=== PATIENT | female | born 1980 | race Caucasian/White ===

== ENCOUNTER 2017-03-01 22:48 | Inpatient (IN) | payer OTHER ==
[~2017-03-01 22:48] MED LIST: EPINEPHrine 1 MG/ML AMP ONE; PROPOFOL 200 MG/20 ML VIAL ONE
[2017-03-01 23:27] VITALS: BMI 33.7
[2017-03-01] MEDS ORDERED: Ondansetron HCl/PF 4 MG/2 ML Vial IVP PRN (23:41)
[2017-03-01] MEDS ORDERED: Promethazine HCl 25 MG/ML VIAL IM PRN (23:41)
[2017-03-01] MEDS ORDERED: CEFAZOLIN/Water 2 GM/20 ML SYRINGE SLOW IVP SCH (23:59)
[2017-03-01] MEDS ORDERED: Lactated Ringer's 1,000 ML IV SCH (23:59)
[2017-03-01] MEDS ORDERED: Bicitra 30 ML UDCUP PO SCH (23:59)
[2017-03-02] MEDS ORDERED: Morphine PF 1 MG/ML SYR ONE (00:03)
[2017-03-02] MEDS ORDERED: ePHEDrine/0.9% NaCl/PF SYRINGE 50 mg/10 ml ONE ×2 (00:03→15:54)
[2017-03-02] MEDS ORDERED: Oxytocin 10 UNITS/ML VIAL ONE (00:03)
[2017-03-02] MEDS ORDERED: Ketorolac Tromethamine 30 MG/ML VIAL ONE ×2 (00:03→15:54)
[2017-03-02] MEDS ORDERED: Ondansetron HCl/PF 4 MG/2 ML Vial ONE ×2 (00:03→15:54)
[2017-03-02 00:05] LABS: Hemoglobin 13.7 g/dL (12.0-16.0); Mean Corpuscular HGB CONC 33.7 g/dL (32.0-36.0); Mean Corpuscular Hemoglobin 32.3 pg (27.0-31.0); Mean Platelet Volume 9.4 fL (7.4-10.4); Platelet Count 207 thou/uL (130-400); Red Blood Cell (RBC) Count 4.24 mill/uL (4.20-5.40)
[2017-03-02 00:38] LABS: Syphilis Antibody Nonreactive (Nonreactive); Syphilis Antibody Index 0.06 S/CO (<1.00 Non-Reactive)
[2017-03-02 00:39] LABS: HBSAg Index 0.19 S/CO (0-0.99); Hep B Surf Ag Non-Reactive S/CO (NonReactive)
[2017-03-02] MEDS ORDERED: Lidocaine 1% PF 5 ML VIAL ONE (00:42)
[2017-03-02] MEDS ORDERED: Succinylcholine Chloride 20 MG/ML 10 ml SYRINGE FS ONE ×2 (00:44→15:54)
[2017-03-02] MEDS ORDERED: Fentanyl 250 MCG/5 ML VIAL ONE (00:45)
[2017-03-02] MEDS ORDERED: Naloxone HCl 0.4 mg/ml Vial IV PRN (01:13)
[2017-03-02] MEDS ORDERED: Promethazine HCl 25 MG SUPP PR PRN (01:13)
[2017-03-02] MEDS ORDERED: Ketorolac Tromethamine 30 MG/ML VIAL IVP PRN (01:13)
[2017-03-02] MEDS ORDERED: HYDROmorphone 2 MG/ML VIAL SLOW IVP PRN (01:13)
[2017-03-02] MEDS ORDERED: Promethazine HCl 25 MG/ML VIAL IM PRN (01:13)
[2017-03-02] MEDS ORDERED: Morphine 10 MG/ML VIAL SLOW IVP PRN (01:13)
[2017-03-02] MEDS ORDERED: Meperidine HCl/PF 25 MG/ML VIAL SLOW IVP PRN (01:13)
[2017-03-02] MEDS ORDERED: Eucerin (Mineral Oil/Petrolatum,White) 30 gm Jar TOP PRN (01:13)
[2017-03-02] MEDS ORDERED: Naloxone HCl 0.4 mg/ml Vial IVP PRN ×2 (01:13)
[2017-03-02] MEDS ORDERED: Ondansetron HCl/PF 4 MG/2 ML Vial IVP PRN ×2 (01:13)
[2017-03-02] MEDS ORDERED: diphenhydrAMINE 50 MG/ML VIAL IVP PRN (01:13)
[2017-03-02] MEDS ORDERED: Ketorolac Tromethamine 30 MG/ML VIAL IVP SCH (01:15)
[2017-03-02] MEDS ORDERED: Communication Order-Pharmacy FS SCH (01:15)
--- NOTE | 2017-03-02 01:22 | PDOC.OPDEL ---
OB Operative/Delivery Note Delivery Dr/Surgeon: Loly Pre-Delivery Diagnosis: breech Procedure/Post Delivery Dx: primary low transverse CS Weeks gestation: 39 Anesthesia: other (spinal inadequate-proceeded to geta) - Findings A Sex: female Weight: 5 lb 11 oz - 1 min: 8 - 5 min: 9 - Additional Findings/Plan Placenta delivered: manual removal findings: low transverse hysterotomy without extension, normal tubes ( arcuate uterus), normal ovaries
[2017-03-02] MEDS ORDERED: Lanolin Ointment 7 GM TUBE TOP PRN (01:24)
[2017-03-02] MEDS ORDERED: diphenhydrAMINE 25 MG CAP PO PRN (01:24)
[2017-03-02] MEDS ORDERED: Bisacodyl 10 MG SUPP PR PRN (01:24)
[2017-03-02] MEDS ORDERED: Zolpidem Tartrate 5 MG TAB PO PRN (01:24)
[2017-03-02] MEDS ORDERED: traMADol HCl 50 MG TAB PO PRN ×3 (01:26→13:15)
--- NOTE | 2017-03-02 01:27 | OP ---
DATE OF SERVICE: 03/02/2017 I was present and scrubbed to assist the uncomplicated primary for breech presentation with Dr. Cassidy Salcido. Please see her note for full details.
[2017-03-02] MEDS ORDERED: Adacel (T-DAP) 0.5 ML VIAL IM ONE (02:00)
[2017-03-02] MEDS ORDERED: LR / Pitocin 40 units/1000 ml 1,000 ML ONE (04:14)
[2017-03-02] MEDS ORDERED: LR / Pitocin 40 units/1000 ml 1,000 ML IV SCH ×2 (04:45→05:15)
[2017-03-02 05:57] LABS: Hemoglobin 11.8 g/dL (12.0-16.0); Mean Corpuscular HGB CONC 33.4 g/dL (32.0-36.0); Mean Corpuscular Hemoglobin 32.3 pg (27.0-31.0); Mean Corpuscular Volume 96.8 fl (81.0-99.0); Mean Platelet Volume 9.4 fL (7.4-10.4); Platelet Count 189 thou/uL (130-400); Red Blood Cell (RBC) Count 3.65 mill/uL (4.20-5.40); White Blood Cell (WBC) Count 15.4 thou/uL (4.8-10.8)
[2017-03-02] MEDS: Ferrous Sulfate 325 MG TAB PO SCH ×2 (08:00→18:16)
--- NOTE | 2017-03-02 08:26 | OP ---
DATE OF PROCEDURE: 03/02/2017 PREOPERATIVE DIAGNOSES: 1. A 36-year-old white female at 39-40 weeks' gestation. 2. Spontaneous rupture of membranes with complete breech presentation. POSTOPERATIVE DIAGNOSES: 1. A 36-year-old white female at 39-40 weeks' gestation. 2. Spontaneous rupture of membranes with complete breech presentation. PROCEDURE PERFORMED: Primary low transverse section without extension. SURGEON: Cassidy Salcido M.D. MEDICAID ELIGIBILITY SPECIALIST SURGEON: Leana Bello M.D. ANESTHESIA: Spinal block attempted inadequate proceeded to general endotracheal anesthetic agent. ESTIMATED BLOOD LOSS: 750 mL. COMPLICATIONS: None. COUNTS: Correct x2. 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 FINDINGS: 1. Vigorous female , complete breech presentation, thin meconium noted. Apgars 8 and 9, weight 5 pounds 11 ounces. 2. Normal-appearing fallopian tubes and ovaries, and uterus was noted to have arcuate-shaped finding . DISPOSITION: To the recovery room stable. DESCRIPTION OF OPERATIVE PROCEDURE: The patient previously received informed consent in regards to odalys bush. She was taken back to the operating room where she received a spinal anesthetic agent. Afte r waiting for a good while, the spinal was inadequate, and therefore induction of the general was car ried out. A Pfannenstiel incision was made in the lower abdomen and was carried down the fascia. Fa scia was nicked in the midline. Fascial incision was extended bilaterally with curved Colon scissors. The rectus fascia was dissected superiorly and inferiorly off the rectus muscle bellies. The rectu s muscle bellies were divided in the midline. The peritoneal cavity was entered. An Lobo O retrac tor was placed. A 2-cm hysterotomy incision was made in the lower uterine segment after bladder flap had been created in usual fashion. The hysterotomy incision was extended via finger fractionation. The lower legs and feet were noted in the lower hysterotomy incision, these were atraumatically deli jimmie. A blue towel was then placed under the buttocks side of the baby and then with a corkscrewing technique, this allowed for delivery of both arms atraumatically and then the head was remained flex ed by my acquisitions assistant and the head was then also delivered atraumatically. The mouth and nares were bul b suctioned on the abdomen. The cord was doubly clamped and cut and the baby was handed to the [facility] nurse in attendance. Usual cord blood was obtained. Placenta was manually extracted. Uterus w as externalized and curetted of any remaining placental fragments with dry laparotomy sponge. Hyster otomy incision was closed in running locking fashion with #1 Monocryl suture. Hemostasis was confirm ed. Additional [id number] sutures were placed in order to achieve this. Uterus returned back i nto the abdomen. Pelvis again was inspected and hysterotomy incision was confirmed to be hemostatic. Lobo O retractor was removed. Again, hemostasis was confirmed. The rectus muscle bellies were i nspected and noted to be hemostatic. Fascia was then closed with 0 PDS suture x2 in running continuo us fashion. Subcutaneous tissue was irrigated and noted to be hemostatic and then the skin was appro ximated with clark. Surgery was terminated. No anesthetic or surgical complications.
[2017-03-02] MEDS: Docusate Calcium (SURFAK) 240 MG CAP PO SCH ×2 (09:00→21:36)
[2017-03-02] MEDS: Prenatal Vitamin 1 TAB PO SCH (09:00)
[2017-03-02] MEDS ORDERED: PROPOFOL 200 MG/20 ML VIAL ONE (15:54)
[2017-03-02] MEDS: traMADol HCl 50 MG TAB PO PRN (21:34)
[2017-03-02] MEDS: Simethicone Chewable 80 MG TAB PO PRN (21:36)
[2017-03-03] MEDS: Ibuprofen 800 MG TAB PO SCH ×3 (03:44→22:04)
[2017-03-03] MEDS: traMADol HCl 50 MG TAB PO PRN (03:45)
[2017-03-03] MEDS: Simethicone Chewable 80 MG TAB PO PRN ×3 (03:47→22:04)
--- NOTE | 2017-03-03 08:23 | PDOC.EVN ---
Event Note - Event Note Event Note: Doing well, voiding, +flatus, Jacky PO. Min lochia. Adequate pain control. Breast feeding Vital Signs (12 hours) Temp Pulse Resp BP Pulse Ox 03/03/17 04:00 97.8 F 92 18 136/80 03/03/17 00:10 98.1 F 97 18 132/81 98 Weight Weight 209 lb Laboratory Last Values WBC 15.4 thou/uL (4.8-10.8) H 03/02/17 05:42 RBC 3.65 mill/uL (4.20-5.40) L 03/02/17 05:42 Hgb 11.8 g/dL (12.0-16.0) L 03/02/17 05:42 Hct 35.3 % (36.0-47.0) L 03/02/17 05:42 MCV 96.8 fl (81.0-99.0) 03/02/17 05:42 MCH 32.3 pg (27.0-31.0) H 03/02/17 05:42 MCHC 33.4 g/dL (32.0-36.0) 03/02/17 05:42 RDW 12.0 % (11.5-14.5) 03/02/17 05:42 Plt Count 189 thou/uL (130-400) 03/02/17 05:42 MPV 9.4 fL (7.4-10.4) 03/02/17 05:42 Syphilis IgG/IgM Ab Nonreactive (Nonreactive) 03/01/17 23:45 Hep Bs Antigen Non-Reactive S/CO (NonReactive) 03/01/17 23:45 Blood Type O POSITIVE 03/01/17 23:45 Antibody Screen NEGATIVE 03/01/17 23:45 Gen NAD Resp unlabored Abd. soft, NT, ND Inc C/D/I fundus firm below U A/P: POD #1 s/p CD for breech, Doing well. Routine Post op care
[2017-03-03] MEDS: Ferrous Sulfate 325 MG TAB PO SCH ×2 (09:35→17:56)
[2017-03-03] MEDS: Docusate Calcium (SURFAK) 240 MG CAP PO SCH ×2 (09:35→22:04)
[2017-03-03] MEDS: Prenatal Vitamin 1 TAB PO SCH (09:35)
[2017-03-04] MEDS: Ibuprofen 800 MG TAB PO SCH (06:21)
--- NOTE | 2017-03-04 07:13 | PDOC.PP ---
Post Progress Note Post Day #: 3 PO intake tolerated: yes Flatus: yes Ambulation: yes Vital Signs (12 hours) Temp Pulse Resp BP BP 03/04/17 01:45 98.3 F 86 16 131/80 03/03/17 20:00 98.3 F 87 16 134/90 Weight Weight 209 lb - Physical Examination General: NAD Cardiovascular: no m/r/g, RRR Respiratory: clear to auscultation bilaterally, non-labored breathing Abdominal: + bowel sounds, lochia, no distention, appropriately TTP Result Diagrams: 03/02/17 05:42 Additional Labs: Post Labs Blood Type O POSITIVE 03/01/17 23:45 Hep Bs Antigen Non-Reactive S/CO (NonReactive) 03/01/17 23:45 - Assessment/Plan doing well post op day 3 d/c home clark out pod 7 and 6 weeks f/u
[2017-03-04 09:25] VITALS: BP 118/76; TEMP 97.7
[2017-03-04] MEDS: Docusate Calcium (SURFAK) 240 MG CAP PO SCH (09:42)
[2017-03-04] MEDS: Prenatal Vitamin 1 TAB PO SCH (09:42)
[2017-03-04] MEDS: Ferrous Sulfate 325 MG TAB PO SCH (09:43)
== END 2017-03-04 12:55 | disposition home or self-care (01) | DRG 766 ==
LOC: L&D/OP 22:48 → L&D 23:38 → 3SW 03-02 14:23
PROVIDERS: ADMIT Obstetrics & Gynecology; ATTEND Obstetrics & Gynecology
PROC: 10D00Z1 Extraction of Products of Conception, Low, Open Approach (ICD-10-PCS; principal; 2017-03-02)
DX: O64.1XX0 Obstructed labor due to breech presentation, not applicable or unspecified (principal); Z37.0 Single live birth; Z3A.39 39 weeks gestation of pregnancy
CPT/HCPCS: 36415; 51702; 85027; 86780; 86850; 86900; 86901; 87340; 99285; J0171; J1885; J2001; J2274; J2405; J2590; J2704; J3010